=== PATIENT | female | born 1940 | race Caucasian/White ===

== ENCOUNTER 2017-06-30 17:22 | Emergency (ER) | payer MEDICARE, BC ==
[2017-06-30 18:49] LABS: #Basophils 0.1 thou/uL (0.0-0.2); #Eosinphils 0.1 thou/uL (0.0-0.7); #Lymphocytes 2.1 thou/uL (1.20-3.40); #Monocytes 0.8 thou/uL (0.11-0.59); #Neutrophils 5.3 thou/uL (1.40-6.50); %Basophils 0.7 % (0.0-1.0); %Eosinophils 1.3 % (0.0-10.0); %Lymphocytes 24.6 % (21.0-51.0); %Neutrophils 63.3 % (42.0-75.0); Hemoglobin 15.5 g/dL (12.0-16.0); Platelet Count 221 thou/uL (130-400); RBC Distribution Width 12.1 % (11.5-14.5); Red Blood Cell (RBC) Count 4.55 mill/uL (4.20-5.40); White Blood Cell (WBC) Count 8.4 thou/uL (4.8-10.8)
--- NOTE | 2017-06-30 19:04 | CT ---
CT BRAIN WITHOUT CONTRAST 06/30/17 HISTORY: Trauma. COMPARISON: None. FINDINGS: Mild atrophy. No acute intracranial infarct or hemorrhage. Moderate periventricular white matter dise ase. Old lacunar infarcts. The calvarium is intact. The paranasal sinuses and mastoids are clear. Orbits are unremarkable. Soft tissues are normal. IMPRESSION: No acute intracranial abnormality. POS: [facility]
[2017-06-30 19:46] LABS: ALT (SGPT) 29 U/L (8-55); AST (SGOT) 39 U/L (5-34); Albumin 4.3 g/dL (3.4-4.8); Alkaline Phosphatase 125 U/L (40-150); Anion Gap 14 mmol/L (10-20); BUN (Urea Nitrogen) 15 mg/dL (9.8-20.1); Bilirubin, Total 0.3 mg/dL (0.2-1.2); Calc. Creatinine Clearance 0 mL/min (70-130); Calcium 9.5 mg/dL (7.8-10.44); Carbon Dioxide 23 mmol/L (23-31); Chloride 105 mmol/L (98-107); Estimated GFR-MDRD 73; Globulin 3.2 g/dL (2.4-3.5); Glucose 116 mg/dL (83-110); Potassium 3.9 mmol/L (3.5-5.1); Protein, Total 7.5 g/dL (6.0-8.3); Sodium 138 mmol/L (136-145)
== END 2017-06-30 19:57 | disposition home or self-care (01) ==
LOC: ERS 17:22
DX: R20.0 Anesthesia of skin (principal); E03.9 Hypothyroidism, unspecified; I10 Essential (primary) hypertension; G40.909 Epilepsy, unspecified, not intractable, without status epilepticus; Z87.891 Personal history of nicotine dependence; Z79.899 Other long term (current) drug therapy
CPT/HCPCS: 70450; 80053; 80185; 85025

== ENCOUNTER 2018-11-17 11:22 | Emergency (ER) | payer MEDICARE, BC ==
[2018-11-17] MEDS ORDERED: Dexamethasone 4 mg/ml Vial ONE (12:34)
[2018-11-17] MEDS ORDERED: diphenhydrAMINE 25 MG CAP ONE (12:34)
[2018-11-17] MEDS ORDERED: Dexamethasone 4 MG TAB ONE ×2 (12:35→12:36)
== END 2018-11-17 12:41 | disposition home or self-care (01) ==
LOC: ERS 11:22
DX: T63.461A Toxic effect of venom of wasps, accidental (unintentional), initial encounter (principal); E03.9 Hypothyroidism, unspecified; I10 Essential (primary) hypertension; M81.0 Age-related osteoporosis without current pathological fracture; Z87.891 Personal history of nicotine dependence; Z79.899 Other long term (current) drug therapy
CPT/HCPCS: 99282; J1100; J8540; Q0163

== ENCOUNTER 2019-07-12 20:08 | Emergency (ER) | payer MEDICARE, BC ==
[2019-07-12] MEDS ORDERED: Metoclopramide HCl 10 MG/2 ML VIAL ONE (20:44)
[2019-07-12] MEDS ORDERED: diphenhydrAMINE 50 MG/ML VIAL ONE (20:44)
[2019-07-12] MEDS ORDERED: Ketorolac Tromethamine 30 MG/ML VIAL ONE (21:29)
--- NOTE | 2019-07-12 21:55 | CT ---
CT OF THE BRAIN WITHOUT CONTRAST: 07/12/19 COMPARISON: 06/30/17. HISTORY: Headache that radiates down to the neck. TECHNIQUE: Multiple contiguous axial images were obtained in a CT of the brain without contrast. FINDINGS: There is scattered hypodensities and subcortical and periventricular white matter, likely secondary t o small vessel ischemic disease. No large confluent infarction is seen. There is no evidence of hydro cephalus, intracranial hemorrhage or extra-axial fluid collection. The calvarium and overlying soft tissues are unremarkable. The visualized paranasal sinuses and masto id air cells are well aerated. IMPRESSION: No evidence of acute intracranial abnormality. POS: [facility]
== END 2019-07-12 23:00 | disposition home or self-care (01) ==
LOC: ERS 20:08
DX: G44.209 Tension-type headache, unspecified, not intractable (principal); I10 Essential (primary) hypertension; M81.0 Age-related osteoporosis without current pathological fracture; E03.9 Hypothyroidism, unspecified; Z87.891 Personal history of nicotine dependence; Z79.899 Other long term (current) drug therapy
CPT/HCPCS: 70450; 96365; 96375; J1200; J1885; J2765

== ENCOUNTER 2019-12-29 13:59 | Outpatient (CLI) | payer MEDICARE, BC ==
--- NOTE | 2019-12-29 15:45 | BD ---
EXAM: DEXA bone density examination HISTORY: 79-year-old postmenopausal female for screening COMPARISON: None FINDINGS: L1--bone mineral density 0.755 g/sq cm; T score -2.1 L2--bone mineral density 0.823 g/sq cm; T score -1.9 L3--bone mineral density 0.838 g/sq cm; T score -2.2 L4--bone mineral density 0.981 g/sq cm; T score -0.7 Total L1-L4--bone mineral density 0.857 g/sq cm; T score -1.7 Left femoral neck--bone mineral density0.555; T score -2.6 Total proximal left femur--bone mineral density 0.654; T score -2.4 IMPRESSION: Osteoporosis.
--- NOTE | 2019-12-29 15:47 | MMO ---
Bilateral MAMMO Bilat Screen [facility]. CLINICAL HISTORY: Patient is 79 years old and is seen for screening. The patient has no family history of breast cancer. The patient has no personal history of cancer. VIEWS: The views performed were: bilateral craniocaudal with tomosynthesis and bilateral mediolateral oblique with tomosynthesis. FILMS COMPARED: The present examination has been compared to prior imaging studies performed at [facility] on 07/28/2011, 08/13/2013, 09/23/2014 and 11/10/2015. This study has been interpreted with the assistance of computer-aided detection. MAMMOGRAM FINDINGS: There are scattered fibroglandular densities. Benign calcifications are noted bilaterally. There are no suspicious masses, suspicious calcifications, or new areas of architectural distortion. IMPRESSION: THERE IS NO MAMMOGRAPHIC EVIDENCE OF MALIGNANCY. A ROUTINE FOLLOW-UP MAMMOGRAM IN 1 YEAR IS RECOMMENDED. THE RESULTS OF THIS EXAM WERE SENT TO THE PATIENT. ACR BI-RADS Category 2 - Benign finding MAMMOGRAPHY NOTE: 1. A negative mammogram report should not delay a biopsy if a dominant of clinically suspicious mass is present. 2. Approximately 10% to 15% of breast cancers are not detected by mammography. 3. Adenosis and dense breasts may obscure an underlying neoplasm. Reported by: SIMIN JEAN BAPTISTE MD Electonically Signed: [id number]
== END 2019-12-29 14:00 | disposition home or self-care (01) ==
LOC: BICMAMMO 13:59
PROVIDERS: ATTEND Family Medicine
DX: Z12.31 Encounter for screening mammogram for malignant neoplasm of breast (principal); M81.6 Localized osteoporosis [Lequesne]
CPT/HCPCS: 77063; 77067; 77080

== ENCOUNTER 2020-11-20 11:27 | Emergency (ER) | payer MEDICARE | END 2020-11-20 13:50 | disposition home or self-care (01) | LOC: ERS 11:27 | DX: S62.647A Nondisplaced fracture of proximal phalanx of left little finger, initial encounter for closed fracture (principal); E03.9 Hypothyroidism, unspecified; I10 Essential (primary) hypertension; M81.0 Age-related osteoporosis without current pathological fracture; Z87.891 Personal history of nicotine dependence; Z79.899 Other long term (current) drug therapy; W22.8XXA Striking against or struck by other objects, initial encounter ==

== ENCOUNTER 2021-05-21 20:32 | Inpatient (IN) | payer MEDICARE ==
[2021-05-21 20:48] LABS: #Basophils 0.1 thou/uL (0.0-0.2); #Eosinphils 0.1 thou/uL (0.0-0.7); #Monocytes 0.5 thou/uL (0.11-0.59); #Neutrophils 5.2 thou/uL (1.40-6.50); %Basophils 1.1 % (0.0-1.0); %Eosinophils 1.3 % (0.0-10.0); %Lymphocytes 40.5 % (21.0-51.0); %Monocytes 4.9 % (0.0-10.0); %Neutrophils 52.2 % (42.0-75.0); Hemoglobin 15.4 g/dL (12.0-16.0); Mean Corpuscular Hemoglobin 34.5 pg (27.0-31.0); Mean Corpuscular Volume 98.7 fL (78.0-98.0); Mean Platelet Volume 6.7 fL (7.4-10.4); Platelet Count 193 thou/uL (130-400); Red Blood Cell (RBC) Count 4.47 mill/uL (4.20-5.40)
[2021-05-21 20:57] LABS: PTT 33.4 sec (22.9-36.1); Prothrombin Time 13.1 sec (12.0-14.7)
[2021-05-21] MEDS ORDERED: Lorazepam 2 MG/ML VIAL ONE ×2 (20:59→22:58)
[2021-05-21 21:14] LABS: ALT (SGPT) 17 U/L (8-55); AST (SGOT) 23 U/L (5-34); Acetaminophen Less than 6.0 mcg/mL (10.0-30.0); Albumin 4.1 g/dL (3.4-4.8); Alcohol 355 mg/dL (Less than 10); Alkaline Phosphatase 87 U/L (40-110); Anion Gap 14 mmol/L (10-20); BUN (Urea Nitrogen) 10 mg/dL (9.8-20.1); Bilirubin, Total 0.3 mg/dL (0.2-1.2); CK (CPK) 46 U/L (29-168); Calc. Creatinine Clearance 0 mL/min (70-130); Calcium 8.5 mg/dL (7.8-10.44); Carbon Dioxide 25 mmol/L (23-31); Chloride 102 mmol/L (98-107); Globulin 2.6 g/dL (2.4-3.5); Glucose 105 mg/dL (83-110); Protein, Total 6.7 g/dL (5.8-8.1); Salicylate Less than 8.0 mg/dL (15.0-30.0); Sodium 137 mmol/L (136-145)
[2021-05-21 21:20] LABS: Amphetamine Not Detected (NotDetected); Barbiturates Screen Detected (NotDetected); Benzodiazepine Screen Not Detected (NotDetected); Cocaine Metabolite Screen Not Detected (NotDetected); Methadone Not Detected (NotDetected); Methamphetamine Not Detected (NotDetected); Opiate Screen Not Detected (NotDetected); Oxycodone Screen Not Detected (NotDetected); Phencyclidine (PCP) Not Detected (NotDetected); THC/Cannabinoid Screen Not Detected (NotDetected); Tricyclic Screen Not Detected (NotDetected)
[2021-05-22] MEDS ORDERED: Acetaminophen 650 MG Suppository PR PRN (00:28)
[2021-05-22] MEDS ORDERED: Ondansetron ODT 4 MG TAB PO PRN ×2 (00:28→01:39)
[2021-05-22] MEDS ORDERED: Ondansetron PF 4 MG/2 ML Vial IVP PRN (00:28)
[2021-05-22] MEDS ORDERED: Acetaminophen 325 MG TAB PO PRN (00:28)
[2021-05-22] MEDS ORDERED: Lorazepam 2 MG/ML VIAL IM PRN (01:39)
[2021-05-22] MEDS ORDERED: Lorazepam 1 MG TAB PO PRN (01:39)
[2021-05-22] MEDS ORDERED: Electrolyte Replacement Protocol 1 EACH FS PRN (01:45)
[2021-05-22] MEDS ORDERED: Thiamine HCl 200 MG/2 ML VIAL SLOW IVP SCH (01:45)
[2021-05-22] MEDS ORDERED: hydrALAZINE 20 MG/ML VIAL SLOW IVP PRN (02:13)
[2021-05-22 02:24] VITALS: BMI 20.4
[2021-05-22] MEDS: Lorazepam 1 MG TAB PO SCH ×3 (02:37→15:02)
[2021-05-22 02:54] LABS: SARS-CoV-2 NAA Rapid Test Not Detected (NotDetected)
[2021-05-22 04:09] LABS: #Eosinphils 0.2 thou/uL (0.0-0.7); #Lymphocytes 2.7 thou/uL (1.20-3.40); #Monocytes 0.5 thou/uL (0.11-0.59); #Neutrophils 8.3 thou/uL (1.40-6.50); %Basophils 0.4 % (0.0-1.0); %Eosinophils 1.3 % (0.0-10.0); %Lymphocytes 23.4 % (21.0-51.0); %Monocytes 4.2 % (0.0-10.0); %Neutrophils 70.8 % (42.0-75.0); Mean Corpuscular HGB CONC 32.5 g/dL (32.0-36.0); Mean Corpuscular Hemoglobin 32.7 pg (27.0-31.0); Mean Platelet Volume 9.2 fL (7.4-10.4); Platelet Count 129 thou/uL (130-400); RBC Distribution Width 12.2 % (11.5-14.5); Red Blood Cell (RBC) Count 4.57 mill/uL (4.20-5.40); White Blood Cell (WBC) Count 11.7 thou/uL (4.8-10.8)
[2021-05-22 04:19] LABS: Anion Gap 18 mmol/L (10-20); BUN (Urea Nitrogen) 9 mg/dL (9.8-20.1); Calc. Creatinine Clearance 58 mL/min (70-130); Calcium 8.4 mg/dL (7.8-10.44); Carbon Dioxide 18 mmol/L (23-31); Chloride 104 mmol/L (98-107); Glucose 92 mg/dL (83-110); Potassium 3.8 mmol/L (3.5-5.1); Sodium 136 mmol/L (136-145)
[2021-05-22] MEDS ORDERED: Multivit, Therapeutic 1 TAB PO SCH (09:00)
[2021-05-22] MEDS ORDERED: Enoxaparin Sodium 40 MG/0.4 ML SYRINGE SC SCH (09:00)
[2021-05-22] MEDS ORDERED: Folic Acid 1 MG TAB PO SCH (09:00)
[2021-05-22 15:40] VITALS: TEMP 97.5
[2021-05-22] MEDS ORDERED: Losartan 25 MG TAB PO SCH (15:45)
[2021-05-22] MEDS ORDERED: Levothyroxine Sodium 75 MCG TAB PO SCH (16:00)
[2021-05-22] MEDS ORDERED: Labetalol HCl 100 MG/20 ML VIAL SLOW IVP PRN (18:08)
[2021-05-22] MEDS ORDERED: Metoprolol Tartrate 25 MG TAB PO SCH (21:00)
[2021-05-23] MEDS ORDERED: Lorazepam 1 MG TAB PO PRN (01:39)
[2021-05-23] MEDS ORDERED: Levothyroxine Sodium 75 MCG TAB PO SCH (06:00)
[2021-05-23] MEDS ORDERED: Losartan 25 MG TAB PO SCH (09:00)
[2021-05-24] MEDS ORDERED: Lorazepam 1 MG TAB PO PRN (01:39)
[2021-05-24] MEDS ORDERED: Lorazepam 0.5 MG TAB PO SCH (01:45)
[2021-05-25] MEDS ORDERED: Lorazepam 0.5 MG TAB PO PRN (01:39)
[2021-05-25] MEDS ORDERED: Thiamine 100 MG TAB PO SCH (01:45)
== END 2021-05-22 19:48 | disposition home or self-care (01) | DRG 917 ==
LOC: ERS 20:32 → IMCU/EMU 05-22 00:05
PROVIDERS: ADMIT Student in an Organized Health Care Education/Training Program; ATTEND Student in an Organized Health Care Education/Training Program
DX: T51.0X1A Toxic effect of ethanol, accidental (unintentional), initial encounter (principal); G92.8 Other toxic encephalopathy; Z20.822 Contact with and (suspected) exposure to COVID-19; T42.3X1A Poisoning by barbiturates, accidental (unintentional), initial encounter; E03.9 Hypothyroidism, unspecified; I10 Essential (primary) hypertension; M81.0 Age-related osteoporosis without current pathological fracture; I16.0 Hypertensive urgency; G40.909 Epilepsy, unspecified, not intractable, without status epilepticus; F10.129 Alcohol abuse with intoxication, unspecified; F32.A Depression, unspecified; D72.829 Elevated white blood cell count, unspecified; Y90.8 Blood alcohol level of 240 mg/100 ml or more; Z90.49 Acquired absence of other specified parts of digestive tract; Z87.891 Personal history of nicotine dependence; Z79.899 Other long term (current) drug therapy
CPT/HCPCS: 36415; 70450; 71045; 80048; 80053; 80185; 80306; 80307; 82550; 83735; 84484; 85025; 85610; 85730; 93005; J1650; J2060; J3411; U0002